=== PATIENT | female | born 1955 | race Caucasian/White ===

== ENCOUNTER 2017-10-11 17:20 | Emergency (ER) | payer OTHER ==
[~2017-10-11] VITALS: Ht 132.1 cm; Wt 113.4 kg
[2017-10-11] MEDS ORDERED: DOXYCYCLINE 10100 MG PO (17:56)
[2017-10-11 18:11] VITALS: BP 163/53
== END 2017-10-11 18:12 | disposition home or self-care (01) ==
LOC: ER 17:20
DX: L03.211 Cellulitis of face (principal); E11.9 Type 2 diabetes mellitus without complications; Z86.73 Personal history of transient ischemic attack (TIA), and cerebral infarction without residual deficits; Z88.1 Allergy status to other antibiotic agents; Z88.5 Allergy status to narcotic agent

== ENCOUNTER 2018-01-03 16:26 | Emergency (ER) | payer OTHER ==
[~2018-01-03] VITALS: Ht 165.1 cm; Wt 111.6 kg
[~2018-01-03 16:26] MED LIST: DOXYCYCLINE 10100 MG PO
[2018-01-03 17:05] LABS: URINE BILIRUBIN NEGATIVE (Negative); URINE BLOOD 1+ (Negative); URINE CLARITY CLEAR; URINE COLOR YELLOW; URINE GLUCOSE-RANDOM* 2+ (Negative); URINE KETONES NEGATIVE (Negative); URINE NITRITE-REFLEX NEGATIVE (Negative); URINE PROTEIN (DIPSTICK) NEGATIVE (Negative); URINE UROBILINOGEN 0.2 E.U./dl (0.2-1.0)
[2018-01-03 17:08] LABS: URINE LEUKOCYTES-REFLEX 1+ (Negative)
[2018-01-03] MEDS ORDERED: METFORMIN HCL500 MG PO (17:11)
[2018-01-03] MEDS ORDERED: SIMVASTATIN40 MG PO (17:11)
[2018-01-03] MEDS ORDERED: ZOLOFT50 MG PO (17:12)
[2018-01-03] MEDS ORDERED: FENOFIBRATE160 MG PO (17:13)
[2018-01-03] MEDS ORDERED: LIORESAL 10 MG10 MG PO (17:14)
[2018-01-03] MEDS ORDERED: FISH OIL 1,001000 M2 PO (17:16)
[2018-01-03 17:21] LABS: BACTERIA-REFLEX >30 Many /HPF (None Seen); CASTS None Seen /LPF (None Seen); SQUAMOUS 4-10 Moderate /LPF (0-3)
[2018-01-03 17:22] LABS: CRYSTALS None Seen /LPF (None Seen); URINE RBC 0-2 Rare /HPF (0-2); WBC CLUMPS Few (None Seen)
[2018-01-03 17:35] LABS: ABSOLUTE NEUTROPHILS 5.2 thou/uL (1.4-8.2); BASOPHILS 0.4 % (0.0-2.0); EOSINOPHILS 0.3 % (0.0-3.0); HEMATOCRIT 38.9 % (37.0-47.0); HEMOGLOBIN 13.3 gm/dL (12.0-15.0); LYMPHOCYTES 16.4 % (24.0-44.0); MCH 30.9 pg (26.0-34.0); MCHC 34.1 g/dL (28.0-37.0); MCV 90.6 fL (80.0-100.0); MONOCYTES 5.3 % (1.0-8.0); PLATELET COUNT 230 thou/uL (150-400); POLYS 77.6 % (36.0-66.0); RDW 13.8 % (10.5-14.5); WBC 6.7 thou/uL (4.0-11.0)
[2018-01-03 17:41] LABS: CALCIUM 9.7 mg/dL (8.5-10.1); POTASSIUM 4.7 mmol/L (3.5-5.1)
[2018-01-03 17:53] LABS: ALBUMIN 3.7 g/dL (3.4-5.0); TOTAL BILIRUBIN 0.5 mg/dL (<0.1-1.0)
[2018-01-03] MEDS ORDERED: BACTRIM DS TAB1 EACH PO (20:06)
[2018-01-03] MEDS ORDERED: HYDROCODONE-AP1 EAC6 PO (20:55)
[2018-01-03 21:04] VITALS: BP 111/47
== END 2018-01-03 21:05 | disposition home or self-care (01) ==
LOC: ER 16:26
PROVIDERS: Physician Assistant
DX: N39.0 Urinary tract infection, site not specified (principal); R51 Headache; E11.9 Type 2 diabetes mellitus without complications; I25.2 Old myocardial infarction; Z95.1 Presence of aortocoronary bypass graft; Z88.1 Allergy status to other antibiotic agents; Z88.5 Allergy status to narcotic agent

== ENCOUNTER 2018-05-15 16:21 | Inpatient (IN) | payer OTHER ==
[~2018-05-15] VITALS: Ht 162.6 cm; Wt 117.9 kg
--- NOTE | ~2018-05-15 | PATH ---
[facility] [address] [place] [address] PATHOLOGY RPT PROCEDURE Name: EMELINA VARGAS Room #: 362-P DIS IN M.R.#: [id number] Admission: 05/15/18 Date of : 55 Discharge: 05/17/18 Report #: [id number] Path Case #: [id number] LCA Accession Number: [id number] . 01 Material submitted: . ANTRUM R/O H. PYLORI . 01 Clinical history: . Pre-OP DX: Abdominal pain Post-OP DX: Gastritis, gastric ulcer, esophagitis, hiatal hernia, duodenitis . 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 - The immunoperoxidase stains for Helicobacter pylori is negative. (SHA:jeff 05/19/2018) QTP/05/19/2018 . 02 Electronically signed: . Ivan Del Cid MD, Pathologist NPI- [id number] . 01 Gross description: . Received in formalin labeled "Emelina Vargas, antrum, rule out H. pylori," are 2 segments of gray soft tissue measuring 0.7 x 0.3 x 0.3 cm in aggregate dimensions and ranging from 0.3 to 0.4 cm in maximum dimension. The specimen is submitted entirely in cassette A1. (TSD; 05/16/2018) TOB/TOB . 02 Pathologist provided ICD-10: K31.9 . 02 CPT . 230444, G18799 Specimen Comment: A courtesy copy of this report has been sent to Specimen Comment: [phone], , . Specimen Comment: Report sent to ,DR VELA / DR YU Specimen Comment: A duplicate report has been generated due to demographic updates. Performed at: [address], [place] [id number] MD Zbigniew Walters MD Phone: [phone] Performed at: [address] [address] PATHOLOGY RPT PROCEDURE Name: EMELINA VARGAS Room #: 362-P DIS IN M.R.#: [id number] Admission: 05/15/18 Date of : 55 Discharge: 05/17/18 Report #: [id number] Path Case #: [id number] [address] [facility], [place], [place] [id number] MD Janae Louis MD Phone: [phone]
--- NOTE | ~2018-05-15 | EKG ---
[address] [place] [address] ELECTROCARDIOGRAM REPORT Name: JAKUB VARGAS Room #: 362-P ADM IN M.R.#: [id number] Admission: 05/15/18 Attend Phys: Juan Daniel Coombs MD Discharge: Date of : 55 Report #: [id number] THIS REPORT FOR: //name// [facility] ED Test Date: 2018-05-15 Test Time: 16:29:04 Pat Name: JAKUB VARGAS Department: Room: 362 Gender: F Stunt Double: GERARDO : 1955 Requested By: Tammy Baires Order Number: [id number] MD: Zack Holt Measurements Intervals [place] Rate: 74 P: 73 RI: 140 QRS: 1 QRSD: 103 T: -27 QT: 430 QTc: 477 Interpretive Statements Sinus rhythm Nonspecific T abnormalities, anterior leads Compared to ECG 03/30/2009 13:14:17 No significant changes Electronically Signed On 05-16-2018 16:55:59 CDT by Zack Holt [email or web address] <ELECTRONICALLY SIGNED> By: Zack Holt MD, [facility] 05/16/18 2265 1629 28 Zack Holt MD, [facility] /EPI
--- NOTE | ~2018-05-15 | 2DMMODE ---
[facility] [address] [place] [address] 2 D/M-MODE ECHOCARDIOGRAM Name: JAKUB VARGAS Room #: 362-P ADM IN M.R.#: [id number] Admission: 05/15/18 Attend Phys: Juan Daniel Coombs MD Discharge: Date of : 55 Date of Service: 05/16/18 1158 Report #: [id number] THIS REPORT FOR: //name// APPROVED REPORT Study performed: 05/16/2018 09:33:36 EXAM: Comprehensive 2D, Doppler, and color-flow Echocardiogram Patient Location: In-Patient Room #: 362 Status: routine BSA: 2.19 HR: 62 bpm BP: 139/71 mmHg Other Information Study Quality: Adequate Technically limited study due to body habitus. Indications Diabetes CAD Chest Pain Hypertension/HDD Hx CVA Echo Enhancing Agent Indication: Endocardial border delineation Agent(s) / Amount(s) Used: Optison 3 cc 2D Dimensions RVDd: 38.32 mm IVSd: 11.54 (7-11mm) LVOT Diam: 22.77 (18-24mm) LVDd: 46.90 mm PWd: 10.95 (7-11mm) Ascending Ao: 33.28 (22-36mm) LVDs: 33.86 (25-40mm) Aortic Root: 30.32 mm IVC: 17.00 mm Volumes Left Atrial Volume (Systole) Single Plane 4CH: 38.31 mL Single Plane 2CH: 43.02 mL LA ESV Index: 20.00 mL/m2 Aortic Valve [facility] [address] [place] [address] 2 D/M-MODE ECHOCARDIOGRAM Name: VARGASJAKUB Room #: 362-P [facility] IN ..#: [id number] Admission: 05/15/18 Attend Phys: Juan Daniel Coombs MD Discharge: Date of : 55 Date of Service: 05/16/18 1158 Report #: [id number] AoV Peak Amos.: 1.15 m/s AO Peak Gr.: 5.30 mmHg LVOT Max P.63 mmHg LVOT Max V: 0.81 m/s KWAKU Vmax: 2.87 cm2 Mitral Valve E/A Ratio: 1.1 MV Decel. Time: 205.45 ms MV E Max Amos.: 0.90 m/s MV A Amos.: 0.83 m/s MV PHT: 59.58 ms IVRT: 114.19 ms Pulmonary Valve PV Peak Amos.: 1.03 m/s PV Peak Gr.: 4.24 mmHg Tricuspid Valve TR Peak Amos.: 2.49 m/s RAP Estimate: 5.00 mmHg TR Peak Gr.: 24.86 mmHg PA Pressure: 30.00 mmHg Left Ventricle The left ventricle is normal size. There is normal LV segmental wall motion. Mild concentric left ventricular hypertrophy. The left ventricular systolic function is normal. The left ventricular ejection fraction is within the normal range. LVEF is 55-60%. The left ventricular diastolic function is normal. Right Ventricle The right ventricle is normal size. The right ventricular systolic function is normal. Atria The left atrium size is normal. The right atrium size is normal. Aortic Valve The aortic valve is normal in structure. No aortic regurgitation is present. There is no aortic valvular stenosis. Mitral Valve The mitral valve is normal in structure. Trace mitral regurgitation. No evidence of mitral valve stenosis. Tricuspid Valve The tricuspid valve is normal in structure. Trace tricuspid [facility] [address] [place] [address] 2 D/M-MODE ECHOCARDIOGRAM Name: JAKUB VARGAS Room #: 362-P ADM IN M.R.#: [id number] Admission: 05/15/18 Attend Phys: Juan Daniel Coombs MD Discharge: Date of : 55 Date of Service: 05/16/18 1158 Report #: [id number] regurgitation. PAP is estimated at 30 mmHg. Pulmonic Valve The pulmonary valve is normal in structure. Mild pulmonic regurgitation. Great Vessels The aortic root is normal in size. IVC is normal in size and collapses >50% with inspiration. Pericardium There is no pericardial effusion. <Conclusion> Technically difficult study The left ventricular systolic function is normal. There is normal LV segmental wall motion. LVEF 55-60%. The aortic valve is normal in structure. No aortic regurgitation or stenosis The mitral valve is normal in structure. Trace mitral regurgitation. Trace tricuspid regurgitation. Pulmonary artery pressure estimated at 30 mmHg. There is no pericardial effusion. <ELECTRONICALLY SIGNED> By: Zack Holt MD, FACC 05/16/18 1158 1158 1158 Zack Holt MD, FACC /INF
--- NOTE | ~2018-05-15 | EKG ---
[address] [place] [address] ELECTROCARDIOGRAM REPORT Name: JAKUB VARGAS Room #: 362-[facility] IN M.R.#: [id number] Admission: 05/15/18 Attend Phys: Juan Daniel Coombs MD Discharge: 05/17/18 Date of : 55 Report #: [id number] THIS REPORT FOR: //name// [facility] Test Date: 2018-05-17 Test Time: 10:54:30 Pat Name: JAKUB VARGAS Department: Room: 362 Gender: F Hand Inspector: JASPAL : 1955 Requested By: Yakov Walsh Order Number: [id number] MD: Zack Holt Measurements Intervals [place] Rate: 59 P: 9 [place]: 138 QRS: -9 QRSD: 107 T: -36 QT: 505 QTc: 501 Interpretive Statements Sinus rhythm Abnormal T, consider ischemia, inferior leads Prolonged QT interval Compared to ECG 05/15/2018 16:29:04 Inferior T wave abnormality is more pronounced Prolonged QT interval now present Electronically Signed On 05-19-2018 8:56:58 CDT by Zack Holt [email or web address] <ELECTRONICALLY SIGNED> By: Zack Holt MD, FAC 05/19/18 0856 1054 1054 Zack Holt MD, [facility] /EPI
[~2018-05-15 16:21] MED LIST changes: +BACTRIM DS TAB1 EACH PO; +FENOFIBRATE160 MG PO; +FISH OIL 1,001000 M2 PO; +HYDROCODONE-AP1 EAC6 PO; +LIORESAL 10 MG10 MG PO; +METFORMIN HCL500 MG PO; +SIMVASTATIN40 MG PO; +ZOLOFT50 MG PO
[2018-05-15 16:22] VITALS: BP 149/73
[2018-05-15 17:00] LABS: ABSOLUTE NEUTROPHILS 3.4 thou/uL (1.4-8.2); BASOPHILS 0.5 % (0.0-2.0); EOSINOPHILS 0.9 % (0.0-3.0); LYMPHOCYTES 34.8 % (24.0-44.0); MCH 30.5 pg (26.0-34.0); MCHC 33.4 g/dL (28.0-37.0); MCV 91.2 fL (80.0-100.0); MONOCYTES 5.8 % (1.0-8.0); PLATELET COUNT 190 thou/uL (150-400); RBC 4.28 mil/uL (4.20-5.00); RDW 13.9 % (10.5-14.5); WBC 5.9 thou/uL (4.0-11.0)
[2018-05-15 17:02] LABS: ANION GAP 12 mmol/L (7-16); BUN 14 mg/dL (7-18); CALCIUM 9.3 mg/dL (8.5-10.1); CHLORIDE 103 mmol/L (98-107); CO2 25 mmol/L (21-32); CREATININE 0.7 mg/dL (0.6-1.0); GLUCOSE 201 mg/dL (74-106); POTASSIUM 4.5 mmol/L (3.5-5.1); SODIUM 140 mmol/L (136-145)
[2018-05-15 17:11] LABS: ALBUMIN 3.7 g/dL (3.4-5.0); LIPASE 239 U/L (73-393); SGOT 21 U/L (15-37); SGPT 18 U/L (30-65); TOTAL BILIRUBIN 0.3 mg/dL (<0.1-1.0); TOTAL PROTEIN 7.1 g/dL (6.4-8.2); TROPONIN-I <0.06 ng/mL (<0.06)
[2018-05-15 17:18] LABS: APTT 27.3 Seconds (24.5-32.8)
[2018-05-15 17:31] LABS: D-DIMER 0.36 ug/mLFEU (0.19-0.50)
[2018-05-15 18:32] VITALS: BP 182/84
[2018-05-15 19:00] VITALS: BP 175/83
[2018-05-15 20:13] VITALS: BP 130/49
[2018-05-16 00:13] VITALS: BP 111/57
[2018-05-16 05:08] LABS: GLYCOHEMOGLOBIN (HGB A1C) 7.9 % (4.8-5.6)
[2018-05-16 07:14] LABS: CHOLESTEROL 168 mg/dL (<200); HDL CHOLESTEROL 27 mg/dL (>40); TC:HDL 6.2 Ratio (Not establshd); TRIGLYCERIDE 516 mg/dL (<150); VLDL 103 mg/dL (<40)
[2018-05-16 07:16] LABS: ALBUMIN 3.6 g/dL (3.4-5.0); CALCIUM 8.8 mg/dL (8.5-10.1); CREATININE 0.7 mg/dL (0.6-1.0); POTASSIUM 3.8 mmol/L (3.5-5.1); TOTAL BILIRUBIN 0.4 mg/dL (<0.1-1.0); TOTAL PROTEIN 6.7 g/dL (6.4-8.2)
[2018-05-16 07:52] VITALS: BP 139/71
[2018-05-16 14:54] VITALS: BP 139/71
[2018-05-16 19:43] VITALS: BP 138/72
[2018-05-17 08:15] VITALS: BP 118/53
[2018-05-17] MEDS ORDERED: COZAAR 25 MG TA25 M1 PO (13:14)
[2018-05-17] MEDS ORDERED: PROTONIX40 M1 PO (13:14)
[2018-05-17] MEDS ORDERED: ASPIR 8181 MG PO (13:14)
[2018-05-17] MEDS ORDERED: CARAFATE 11 GM/10 M1 PO (13:14)
[2018-05-17] MEDS ORDERED: METOPROLOL SUCC25 M1 PO (13:14)
[2018-05-17 13:22] VITALS: BP 118/53
[2018-05-17 13:32] VITALS: BP 118/53
== END 2018-05-17 17:53 | disposition home or self-care (01) | DRG 381 ==
LOC: ER 16:21 → 3W 18:03 → EROBS 18:03 → 3W 19:07
PROVIDERS: Family Medicine; Nurse Practitioner; Physician Assistant
PROC: 0DJ08ZZ Inspection of Upper Intestinal Tract, Via Natural or Artificial Opening Endoscopic (ICD-10-PCS; principal; 2018-05-16)
DX: K22.10 Ulcer of esophagus without bleeding (principal); I25.110 Atherosclerotic heart disease of native coronary artery with unstable angina pectoris; I69.351 Hemiplegia and hemiparesis following cerebral infarction affecting right dominant side; K29.81 Duodenitis with bleeding; K25.9 Gastric ulcer, unspecified as acute or chronic, without hemorrhage or perforation; E11.9 Type 2 diabetes mellitus without complications; F41.9 Anxiety disorder, unspecified; I10 Essential (primary) hypertension; E78.5 Hyperlipidemia, unspecified; E78.1 Pure hyperglyceridemia; M34.9 Systemic sclerosis, unspecified; K44.9 Diaphragmatic hernia without obstruction or gangrene; Z95.1 Presence of aortocoronary bypass graft; I25.2 Old myocardial infarction; Z88.6 Allergy status to analgesic agent; Z88.1 Allergy status to other antibiotic agents; I69.320 Aphasia following cerebral infarction; Z87.891 Personal history of nicotine dependence; Z90.49 Acquired absence of other specified parts of digestive tract; Z86.010 Personal history of colon polyps; Z23 Encounter for immunization; Z79.899 Other long term (current) drug therapy
CPT/HCPCS: 10879; 62110; 62900; 70005

== ENCOUNTER 2018-08-06 00:10 | Inpatient (IN) | payer OTHER ==
[~2018-08-06] VITALS: Ht 162.6 cm; Wt 108.6 kg
[~2018-08-06 00:10] MED LIST changes: +ASPIR 8181 MG PO; +CARAFATE 11 GM/10 M1 PO; +COZAAR 25 MG TA25 M1 PO; +METOPROLOL SUCC25 M1 PO; +PROTONIX40 M1 PO
[2018-08-06 00:14] VITALS: BP 125/53
[2018-08-06 01:08] LABS: BE(vivo) -2.1 mmol/L (-2 to +3); HCO3 22.9 mmol/L (22.0-26.0); PCO2 VENOUS 40.2 mmHg (41.0-51.0); PO2 VENOUS 201.5 mmHg (35.0-45.0)
[2018-08-06 01:25] LABS: HEMATOCRIT 35.1 % (37.0-47.0); HEMOGLOBIN 11.9 gm/dL (12.0-15.0); MCH 31.6 pg (26.0-34.0); MCV 93.1 fL (80.0-100.0); RBC 3.77 mil/uL (4.20-5.00); WBC 5.6 thou/uL (4.0-11.0)
[2018-08-06 01:32] LABS: ANION GAP 9 mmol/L (7-16); BUN 21 mg/dL (7-18); CHLORIDE 106 mmol/L (98-107); CO2 27 mmol/L (21-32); CREATININE 1.1 mg/dL (0.6-1.0); GLUCOSE 204 mg/dL (74-106); POTASSIUM 4.8 mmol/L (3.5-5.1); SODIUM 142 mmol/L (136-145)
[2018-08-06 01:41] LABS: TROPONIN-I <0.06 ng/mL (<0.06)
[2018-08-06 02:55] VITALS: BP 125/53
[2018-08-06 04:03] VITALS: BP 133/58
--- NOTE | 2018-08-06 06:30 | NUR ---
ADMIT FROM ER. PT ON 15L ON HIGH FLOW. OTHER FAMILY MEMBERS ARE ON 4W WITH CO2 EXPOSURE. OVERLY ROUNDING.
[2018-08-06 07:25] LABS: BE(vivo) -0.9 mmol/L (-2 to +3); HCO3 24.8 mmol/L (22.0-26.0); PCO2 VENOUS 45.5 mmHg (41.0-51.0); PO2 VENOUS 245.5 mmHg (35.0-45.0)
[2018-08-06 08:09] VITALS: BP 109/55
--- NOTE | 2018-08-06 08:29 | EKG ---
[place] [address] [facility] [place] [address] ELECTROCARDIOGRAM REPORT Name: JAKUB VARGAS Room #: 357-P ADM IN M.R.#: [id number] Admission: 08/06/18 Attend Phys: Serge Wakefield MD Discharge: Date of : 55 Report #: [id number] THIS REPORT FOR: //name// [facility] ED Test Date: 2018-08-06 Test Time: 01:29:52 Pat Name: JAKUB VARGAS Department: Room: 357 Gender: F Child Caregiver: radha garcia rn : 1955 Requested By: Josh Cool Order Number: [id number] MD: Benson Shaw Measurements Intervals [place] Rate: 62 P: 48 [place]: 157 QRS: -15 QRSD: 102 T: QT: 639 QTc: 649 Interpretive Statements Sinus rhythm Borderline left axis deviation Excessive motion artifact. Compared to ECG 05/17/2018 10:54:30 Electronically Signed On 08-06-2018 8:29:38 [employer] PURCHASE TRUCK DRIVER by Benson Shaw [email or web address] <ELECTRONICALLY SIGNED> By: Benson Shaw MD 08/06/18 0829 0129 0129 Benson Shaw MD /LIZANDRO
[2018-08-06 15:22] VITALS: BP 100/56
--- NOTE | 2018-08-06 15:57 | NUR ---
assumed care of pt at 0700. pt aphasic. in no acute distress. AOx2-3. weaned off oxygen. now on room air. complaining of headache - Toradol ordered by physician. now sleeping. good appetite. sugars elevated - treated per protocol. will cont to monitor. good progress toward poc goals.
--- NOTE | 2018-08-06 16:08 | NUR ---
ASSESSMENT: CM REVIEWED CHART AND MET WITH PATIENT AT THE BEDSIDE. PT WAS ADMITTED WITH CARBON MONOXIDE EXPOSURE AFTER POWER OUTTAGE AND USING A GENERATOR. PT HAS HX OF CVA AND RIGHT SIDED WEAKNESS. PT IS ABLE TO STATE SOME INFORMATION AND REPORTS SHE LIVES AT HOME WITH HER NIECE AMELIE PT REPORTS NO STEPS AT THE HOME AND HAS A RAMP TO ENTER. PT HAS AN ELECTRIC WHEELCHAIR AT HOME. PT HAS GRAB BARS AND A SHOWER BENCH. PTS NIECE AMELIE LIVES WITH HER AND WORKS THROUGH [employer] AND GETS PAID TO HELP TAKE CARE OF PATIENT IN THE HOME (THROUGH HER MEDICAID BENEFIT). CM ATTEMPTED TO REACH AMELIE BUT UNABLE TO AT THIS TIME. PT REPORTS SHE HEARD HER POWER IS STILL OUT. CM ALSO CONTACTED [facility] [phone] TO CHECK ON CARBON MONOXIDE AND MUSIC STORE MANAGER STATED SHE ONLY HAS INFORMATION THAT THEY PICKED UP PATIENT AND THE [facility] WAS CALLED THERE BUT SHE DOES NOT HAVE A DOCUMENT CARBON MONOXIDE READING. CM WILL CONTINUE TO FOLLOW.
[2018-08-06 20:21] VITALS: BP 120/96
[2018-08-07 00:24] VITALS: BP 116/59
--- NOTE | 2018-08-07 04:19 | NUR ---
MAINTAINS OXYGENATION ON ROOM AIR. COMPLAINS OF HEADACHE TONIGHT. SHE NEEDED FENTANYL FOR PAIN RELIEF, TORADOL AND HYDROCODONE WERE NOT RELIEVING HER DISCOMFORT. ENCOURAGED TURNS SIDE TO SIDE. SHE IS CURRENTLY RESTING QUIETLY AT THIS TIME. PROGRESSING TOWARD DISCHARGE GOALS.
[2018-08-07 04:56] VITALS: BP 130/65
[2018-08-07 06:13] LABS: CALCIUM 8.8 mg/dL (8.5-10.1); CREATININE 0.8 mg/dL (0.6-1.0); POTASSIUM 4.7 mmol/L (3.5-5.1)
[2018-08-07 07:31] VITALS: BP 119/66
[2018-08-07 14:26] VITALS: BP 129/71
--- NOTE | 2018-08-07 15:24 | NUR ---
ON-GOING ASSESSMENT: PT WAS GOING TO DISCHARGE TODAY IF SHE HAD A SAFE PLAN. HOWEVER PATIENTS NIECE WHO SHE LIVES WITH AMELIE IS ST[facility] AT [facility] BEDSIDE RN REPORTS HE SPOKE WITH HER AND SHE STATES THEIR POWER IS STILL OUT AT THEIR HOME. CM MET WITH PATIENT AT THE BEDSIDE. PT HAS HX CVA AND S/P HEMIPARESIS AND HAS EXPRESSIVE APHASIA. PT REPORTS SHE HAD SPOKE WITH AMELIE AND THE POWER IS STILL OUT AT THE HOME. CM HAD ATTEMPTED TO CONTACT PATIENTS DAUGHTER BUT SHE STATES SHE DOES NOT SPEAK TO PATIENT AND HAS NOT SPOKEN TO HER IN A LONG TIME. BEDSIDE RN REPORTED HE SPOKE WITH ATTENDING ABOUT PATIENT STILL NOT HAVING POWER.
--- NOTE | 2018-08-07 15:48 | NUR ---
ASsumed care of Pt at 0700. pt aphasic. baseline mentation. breathing comfortably on room air. complains only of headache - finding relief with current med regimen. medically stable for discharge, however family members reports home is still without power and are still working on setting up CO2 monitors. physician notified - patient to stay overnight - will cont to monitor. pt progressed toward poc goals.
[2018-08-07 19:38] VITALS: BP 147/68
[2018-08-08 03:28] VITALS: BP 153/77
--- NOTE | 2018-08-08 04:39 | NUR ---
PATIENT IS ALERT TO SELF AND SITUATION. PATINET IS Q2TURN. JOHNT HAS WEAKNESS TO RT SIDE FROM OLD CVA. PATIENT HAS A BRACE ON THAT SIDE. PATIENT LBM WAS THE 17TH. PATIENT HAS INTERMIENTENT HEADACHES. PATIENTS IV DC'ED AND PATIENT HAS A ORDER TO KEEP IV OUT. PATIENT IS ON ROOMAIR. PATIENT HAS A FEMALE EXTERNAL CATH. PATIENT HAS SOME EXPRESSIVE APHESIA. PATIENT HAD SOME NAUSEA THIS SHIFT. PATIENT IS RESTING COMFORTABLEY IN BED. WCM. PATIENT IS PROGRESSING TO GOALS. PENDING DC TODAY.
[2018-08-08 07:12] VITALS: BP 124/59
--- NOTE | 2018-08-08 10:32 | NUR ---
ON-GOING ASSESSMENT: CM REVIEWED CHART AND SPOKE WITH PATIENT AT THE BEDSIDE. CM ALSO SPOKE WITH PATIENTS NIECE AMELIE [phone] WHO SHE LIVES WITH AND SHE REPORTS THE POWER IS BACK ON AT THEIR HOME. CM DISCUSSED THAT PATIENT IS DISCHARGING TODAY. CM MET WITH PATIENT AT THE BEDSIDE AND DISCUSSED. PATIENTS STATES HER FAMILY MEMBER EMELY IS COMING AT 1400 TO PICK HER UP FROM THE HOSPITAL. CM NOTIFIED BEDSIDE RN.
--- NOTE | 2018-08-08 12:26 | NUR ---
ON-GOING ASSESSMENT: DEMETRI SPOKE WITH EMELY PATIENTS FAMILY MEMBER WHO CONFIRMS SHE GETS OFF AT ONE AND THEN WILL COME CRIMPER OPERATOR PATIENT TO TAKE HER HOME.
[2018-08-08 14:27] VITALS: BP 124/59
[2018-08-08 14:31] VITALS: BP 124/59
--- NOTE | 2018-08-08 15:45 | NUR ---
VSS-AFEBRILE. LUNGS CLEAR-ROOM AIR. PAIN WELL CONTROLLED WITH ORAL PAIN MEDICATIONS. DAUGHTER AT BEDISDE. DISCUSSED DC INSTRUCTIONS WELL S/S OF CARBON MONOXIDE POISONING, PATIENT AN DAUGHTER VERBALIZED UNDERSTANDING. DAUGHTER TO STOP BY PHARMACY TO ENTRY LEVEL SALES CONSULTANT HOME MEDICATIONS. LEFT UNIT WITH TRANSPORTER AND ALL PERSONAL BELONGINGS.
== END 2018-08-08 15:17 | disposition home or self-care (01) | DRG 917 ==
LOC: ER 00:10 → 3W 01:30 → EROBS 01:30 → 3W 03:34 → ENTRNSPT 08-08 14:47 → EDTRNSPTSTS 08-08 14:50 → 3W 08-08 15:17
PROVIDERS: Emergency Medicine; Nurse Practitioner Family; ADMIT Hospitalist
DX: T58.8X1A Toxic effect of carbon monoxide from other source, accidental (unintentional), initial encounter (principal); J96.00 Acute respiratory failure, unspecified whether with hypoxia or hypercapnia; I69.351 Hemiplegia and hemiparesis following cerebral infarction affecting right dominant side; E11.9 Type 2 diabetes mellitus without complications; I25.10 Atherosclerotic heart disease of native coronary artery without angina pectoris; E78.5 Hyperlipidemia, unspecified; I25.2 Old myocardial infarction; Z95.1 Presence of aortocoronary bypass graft; Z88.6 Allergy status to analgesic agent; Z88.1 Allergy status to other antibiotic agents; Z87.891 Personal history of nicotine dependence; I69.320 Aphasia following cerebral infarction; Y92.59 Other trade areas as the place of occurrence of the external cause
CPT/HCPCS: 10879

== ENCOUNTER 2021-03-27 21:36 | Inpatient (IN) | payer OTHER ==
[~2021-03-27] VITALS: Ht 160 cm; Wt 111.1 kg
[2021-03-27 21:38] VITALS: BP 154/75
[2021-03-27] MEDS ORDERED: LISINOPRIL10 MG PO (21:43)
[2021-03-27] MEDS ORDERED: NORVASC 2.5 MG2.5 M1 PO (21:44)
[2021-03-27 22:21] LABS: ABSOLUTE NEUTROPHILS 4.7 thou/uL (1.4-8.2); BASOPHILS 1.2 % (0.0-2.0); EOSINOPHILS 0.9 % (0.0-3.0); HEMATOCRIT 41.6 % (37.0-47.0); HEMOGLOBIN 14.1 gm/dL (12.0-15.0); LYMPHOCYTES 28.1 % (24.0-44.0); MCH 32.9 pg (26.0-34.0); MCHC 33.8 g/dL (28.0-37.0); MCV 97.4 fL (80.0-100.0); MONOCYTES 5.5 % (1.0-8.0); PLATELET COUNT 243 thou/uL (150-400); POLYS 64.3 % (36.0-66.0); RBC 4.27 mil/uL (4.20-5.00); RDW 14.1 % (10.5-14.5); WBC 7.3 thou/uL (4.0-11.0)
[2021-03-27 22:22] LABS: URINE BILIRUBIN NEGATIVE (Negative); URINE BLOOD NEGATIVE (Negative); URINE CLARITY CLOUDY; URINE COLOR YELLOW; URINE GLUCOSE-RANDOM* 2+ (Negative); URINE KETONES NEGATIVE (Negative); URINE LEUKOCYTES-REFLEX NEGATIVE (Negative); URINE PROTEIN (DIPSTICK) TRACE (Negative); URINE SPECIFIC GRAVITY >= 1.030 (1.005-1.035); URINE UROBILINOGEN 0.2 E.U./dl (0.2-1.0)
[2021-03-27 22:26] LABS: URINE NITRITE-REFLEX POSITIVE (Negative)
[2021-03-27 22:37] LABS: ANION GAP 10 mmol/L (7-16); BUN 18 mg/dL (7-18); CALCIUM 8.6 mg/dL (8.5-10.1); CHLORIDE 101 mmol/L (98-107); CO2 23 mmol/L (21-32); CREATININE 0.9 mg/dL (0.6-1.0); GLUCOSE 259 mg/dL (74-106); POTASSIUM 4.5 mmol/L (3.5-5.1); SODIUM 134 mmol/L (136-145)
[2021-03-27 22:41] LABS: ALBUMIN 3.5 g/dL (3.4-5.0); DIRECT BILIRUBIN < 0.1 mg/dL (<0.1-0.2); LIPASE 230 U/L (73-393); TOTAL BILIRUBIN 0.4 mg/dL (0.2-1.0); TOTAL PROTEIN 7.2 g/dL (6.4-8.2)
[2021-03-27 22:43] LABS: SGOT 15 U/L (15-37); SGPT 21 U/L (14-59)
[2021-03-27 23:30] LABS: BACTERIA-REFLEX >30 Many /HPF (None Seen); CASTS None Seen /LPF (None Seen); MUCUS 0-3 Light strn/LPF (None Seen); SQUAMOUS 4-10 Moderate /LPF (0-3); URINE RBC 3-10 Few /HPF (NONE SEEN); URINE WBC-REFLEX 0-5 Rare /HPF (0-5)
[2021-03-27 23:31] LABS: CRYSTALS None Seen /LPF (None Seen)
[2021-03-28 03:08] LABS: HEMATOCRIT 38.8 % (37.0-47.0); HEMOGLOBIN 12.9 gm/dL (12.0-15.0); MCH 32.3 pg (26.0-34.0); MCHC 33.4 g/dL (28.0-37.0); MCV 96.7 fL (80.0-100.0); RBC 4.01 mil/uL (4.20-5.00); WBC 6.8 thou/uL (4.0-11.0)
[2021-03-28 03:22] LABS: PROTIME 10.9 Seconds (10.5-12.1)
[2021-03-28 03:28] LABS: CALCIUM 8.7 mg/dL (8.5-10.1); CREATININE 0.8 mg/dL (0.6-1.0); POTASSIUM 4.7 mmol/L (3.5-5.1)
[2021-03-28 03:37] LABS: CHOLESTEROL 166 mg/dL (<200); HDL CHOLESTEROL 26 mg/dL (>40); TC:HDL 6.4 Ratio (Not establshd); TRIGLYCERIDE 443 mg/dL (<150); VLDL 89 mg/dL (<40)
[2021-03-28 04:27] LABS: SERUM ASSESSMENT Clear
--- NOTE | 2021-03-28 09:31 | 2DMMODE ---
[facility] [address] [place] [address] 2 D/M-MODE ECHOCARDIOGRAM Name: JAKUB VARGAS Room #: 170-1 ADM IN M.R.#: [id number] Admission: 03/28/21 Attend Phys: Pushpa Garza Discharge: Date of : 55 Report #: [id number] THIS REPORT FOR: cc: FAM - No family physician/PCP FAM - No family physician/PCP Diogenes Mustafa MD ~ APPROVED REPORT Study performed: 03/28/2021 08:33:27 EXAM: Comprehensive 2D, Doppler, and color-flow Echocardiogram Patient Location: ER Status: routine BSA: 2.11 HR: 67 bpm BP: 132/45 mmHg Rhythm: NSR Other Information Study Quality: Good Indications Diabetes Dyspnea CAD Chest Pain 2D Dimensions RVDd: 40.17 mm IVSd: 9.66 (7-11mm) LVOT Diam: 22.27 (18-24mm) LVDd: 54.84 mm PWd: 9.44 (7-11mm) Ascending Ao: 32.73 (22-36mm) LVDs: 37.92 (25-40mm) Left Atrium: 43.72 (27-40mm) Aortic Root: 28.44 mm IVC: 15.00 mm Volumes Left Atrial Volume (Systole) Single Plane 4CH: 40.65 mL Single Plane 2CH: 35.70 mL LA ESV Index: 20.00 mL/m2 Aortic Valve AoV Peak Amos.: 1.34 m/s [facility] [address] [place] [address] 2 D/M-MODE ECHOCARDIOGRAM Name: JAKUB VARGAS Room #: 170-1 ADM IN M.R.#: [id number] Admission: 03/28/21 Attend Phys: Pushpa Gutiérrez Discharge: Date of : 55 Report #: [id number] AO Peak Gr.: 7.19 mmHg LVOT Max P.28 mmHg LVOT Max V: 0.91 m/s KWAKU Vmax: 2.63 cm2 Mitral Valve E/A Ratio: 1.3 MV Decel. Time: 231.69 ms MV E Max Amos.: 1.33 m/s MV A Amos.: 1.04 m/s MV PHT: 67.19 ms IVRT: 69.20 ms Pulmonary Valve PV Peak Amos.: 0.92 m/s PV Peak Gr.: 3.40 mmHg Pulmonary Vein P Vein S: 0.70 m/s P Vein A: 0.22 m/s P Vein D: 0.96 m/s P Vein A Dur.: 96.9 msec P Vein S/D Ratio: 0.73 Tricuspid Valve TR Peak Amos.: 2.86 m/s TR Peak Gr.: 32.66 mmHg PA Pressure: 38.00 mmHg Left Ventricle The left ventricle is normal size. There is normal LV segmental wall motion. There is normal left ventricular wall thickness. The left ventricular systolic function is normal. The left ventricular ejection fraction is within the normal range. LVEF is 55-60%. Grade II - pseudonormal filling dynamics. Right Ventricle The right ventricle is normal size. The right ventricular systolic function is normal. Atria The left atrium size is normal. The right atrium size is normal. Aortic Valve The aortic valve is normal in structure. No aortic regurgitation is present. There is no aortic valvular stenosis. Mitral Valve The mitral valve is normal in structure. Mild mitral regurgitation. [facility] [place] [address] 2 D/M-MODE ECHOCARDIOGRAM Name: JAKUB VARGAS Room #: 170-1 ADM IN M.R.#: [id number] Admission: 03/28/21 Attend Phys: Pushpa Gutiérrez Discharge: Date of : 55 Report #: [id number] No evidence of mitral valve stenosis. Tricuspid Valve The tricuspid valve is normal in structure. There is trace tricuspid regurgitation. Estimated PAP 36 mmHg. There is mild pulmonary hypertension. Pulmonic Valve The pulmonary valve is normal in structure. Trace pulmonic regurgitation. Great Vessels The aortic root is normal in size. IVC is normal in size and collapses >50% with inspiration. Pericardium There is no pericardial effusion. <Conclusion> The left ventricle is normal size. There is normal left ventricular wall thickness. The left ventricular systolic function is normal. Grade II - pseudonormal filling dynamics. The right ventricle is normal size. The left atrium size is normal. The aortic valve is normal in structure. Mild mitral regurgitation. There is trace tricuspid regurgitation. Estimated PAP 36 mmHg. <ELECTRONICALLY SIGNED> By: Diogenes Mustafa MD 03/28/21930 0 0 Diogenes Mustafa MD /INF
--- NOTE | 2021-03-28 17:18 | NUR ---
PT ASSISTED ON THE BEDPAN WITHOUT ISSUE OR DIFFICULTY. REPORT GIVEN TO ALVIN SANTANA ON CCU. WILL ADMIT PT TO ROOM 204.
[2021-03-28 17:40] VITALS: BP 134/54
--- NOTE | 2021-03-28 17:59 | CATHLAB ---
[facility] [place] [address] [place] [address] INVASIVE PROCEDURE REPORT Name: JAKUB VARGAS Room #: 204-P ADM IN M.R.#: [id number] Admission: 03/28/21 Attend Phys: Pushpa Steve Greg Discharge: Date of : 55 Report #: [id number] THIS REPORT FOR: cc: FAM - No family physician/PCP FAM - No family physician/PCP Yakov Walsh MD [facility] ~ APPROVED REPORT Study performed: 03/28/2021 13:00:56 Patient Details Patient Status: Out-Patient Room #: The patient is a 66 year-old female Event Personnel Yakov Walsh Printed Circuit Photographer, Bre Reynaga RTR, TY Scrub, Jaida Jean-Baptiste RTR Scrub, Shreya Carl Monitor, Yvonne Ashley RN research neuropsychologist Performed Art Access - R femoral artery* Left Heart Cath w/or w/o Coronaries [id number] [facility] Hemostasis w/ Mynx 19336 Initial Mod Sed Same Phys/QHP Gr5y 496901 56107 Mod Sed Same Phys/QHP Ea 585504 Indication Chest pain Procedure Narrative The Right Groin^ was infiltrated with 1% Lidocaine subcutaneous anesthesia. A PINNACLE 6FR Sheath #[id number] sheath was inserted into the RFA^. Coronary angiography was performed using coronary diagnostic catheters. The right coronary system was accessed and visualized with a JR4 catheter. The left coronary system was accessed and visualized with a JL4 catheter. The left ventricle was accessed and visualized with a STR PIG catheter. There was no hematoma. Intraoperative Conscious Sedation Sedation start time: 1423 Case end Time: 1510 Fentanyl 50 mcg Versed 1 mg Fluoro Time: 4.20 minutes Dose: DAP 9301.60 cGycm2 1322 mGy [facility] [address] [place] [address] INVASIVE PROCEDURE REPORT Name: JAKUB VARGAS Room #: 204-P [facility] IN ..#: [id number] Admission: 03/28/21 Attend Phys: Pushpa Gutiérrez Discharge: Date of : 55 Report #: [id number] Contrast Type and Amount: Omnipaque 155 ml Hemodynamics The aortic pressure is 161/68 mmHg with a mean of 105 mmHg. The left ventricular pressure is 179/15 mmHg with a mean of mmHg. The left ventricular end diastolic pressure is 30 mmHg. Conclusion #1 Normal left ventricular size and systolic function EF 60%. #2 abdominal aortogram normal caliber mild aortic ectasia no aneurysm. #3 left main is mildly diseased distal segment narrowing of 30% giving rise to LAD and circumflex. #4 LAD some competitive filling of a diagonal the LAD is occluded proximally after the septal branch. #5 a OREILLY sequential to a diagonal LAD is widely patent and briskly filling the LAD system and the septal system which collaterally fills the PDA briskly. The diagonal branch competitively filled via this graft [place] diagonal is still patent. #6 the circumflex OM is moderately diseased the first OM is patent with a 50% lesion and calcification. Diffuse distal disease in a smaller nondominant system. #7 SVG to OM is occluded #8 the [place] right coronary artery is occluded #9 SVG to the PDA is occluded there appears to be possible distal clot but the PDA fills briskly via the left system. Recommendations and plan: There is evidence of slight troponin elevation. However ejection fraction is preserved. Not clear as the culprit possibly this SVG to the PDA but this is occluded proximally and little chance of successful reopening. Also concerned about distal clot showering of what appears to be a briskly filled PDA. She is pain-free without EKG changes. We will treat aggressively medically with medical management. Best not to attempt intervention into [place] right or SVG to PDA. LV function is preserved and PDA is briskly collaterally filled via the left system. <ELECTRONICALLY SIGNED> By: Yakov Walsh MD, [facility] 03/28/211758 58 58 Yakov Walsh MD, FACC /INF
[2021-03-28 19:32] VITALS: BP 140/60
--- NOTE | 2021-03-28 20:29 | NUR ---
End shift note: Pt remained safe and comfortable during the last hours of the shift, pain conntrolled, groin site w/o complications, VSS, gluc covered, one BM.
[2021-03-28 23:39] VITALS: BP 154/68
[2021-03-29 04:44] VITALS: BP 131/49
[2021-03-29 07:38] VITALS: BP 134/59
[2021-03-29] MEDS ORDERED: LIPITOR40 MG PO (07:55)
[2021-03-29] MEDS ORDERED: CLOPIDOGREL75 MG PO (07:55)
[2021-03-29] MEDS ORDERED: IMDUR 30 MG TAB30 M1 PO (07:55)
[2021-03-29 08:12] LABS: CALCIUM 9.2 mg/dL (8.5-10.1); CREATININE 0.9 mg/dL (0.6-1.0); POTASSIUM 4.4 mmol/L (3.5-5.1)
--- NOTE | 2021-03-29 08:16 | EKG ---
[address] [place] [place] [address] ELECTROCARDIOGRAM REPORT Name: JAKUB VARGAS Room #: 204-P ADM IN M.R.#: [id number] Admission: 03/28/21 Attend Phys: Duke Gleason MD Discharge: Date of : 55 Report #: [id number] [facility] ED Test Date: 2021-03-27 Test Time: 21:42:49 Pat Name: JAKUB VARGAS Department: Room: 204 Gender: F Dental Professional: IRMA : 1955 Requested By: Andrea Gutierrez Order Number: [id number] MD: Zack Holt Measurements Intervals [place] Rate: 73 P: 42 TN: 155 QRS: 36 QRSD: 100 T: 56 QT: 459 QTc: 506 Interpretive Statements Sinus rhythm Nonspecific T abnormalities, anterior leads Prolonged QT interval Compared to ECG 08/06/2018 01:29:52 No significant change was found Electronically Signed On 03-29-2021 8:16:21 CDT by Zack Holt [email or web address] <ELECTRONICALLY SIGNED> By: Zack Holt MD, [facility] 03/29/21 0816 41 41 Zack Holt MD, [facility] /EPI
--- NOTE | 2021-03-29 08:17 | EKG ---
[address] [place] [place] [address] ELECTROCARDIOGRAM REPORT Name: JAKUB VARGAS Room #: 204- ADM IN M.R.#: [id number] Admission: 03/28/21 Attend Phys: Duke Gleason MD Discharge: Date of : 55 Report #: [id number] [facility] ED Test Date: 2021-03-28 Test Time: 01:47:54 Pat Name: JAKUB VARGAS Department: Room: 204 Gender: F Slumber Room Attendant: DANA : 1955 Requested By: Andrea Gutierrez Order Number: [id number] MD: Zack Holt Measurements Intervals [place] Rate: 72 P: 29 [place]: 157 QRS: 11 QRSD: 97 T: 27 QT: 460 QTc: 504 Interpretive Statements Sinus rhythm nonspecific ST segment abnormality prolonged QT interval Baseline wander in lead(s) I,II,aVR,aVL,V1 Compared to ECG 03/27/2021 21:42:49 No significant changes Electronically Signed On 03-29-2021 8:17:04 CDT by Zack Holt [email or web address] <ELECTRONICALLY SIGNED> By: Zack Holt MD, [facility] 03/29/21 0817 6 Zack Holt MD, [facility] /EPI
--- NOTE | 2021-03-29 08:17 | EKG ---
[address] [place] [address] ELECTROCARDIOGRAM REPORT Name: JAKUB VARGAS Room #: 204-P ADM IN M.R.#: [id number] Admission: 03/28/21 Attend Phys: Duke Gleason MD Discharge: Date of : 55 Report #: [id number] [facility] ED Test Date: 2021-03-28 Test Time: 01:49:07 Pat Name: JAKUB VARGAS Department: Room: 204 Gender: F [employer]: DANA : 1955 Requested By: Andrea Gutierrez Order Number: [id number] MD: Zack Holt Measurements Intervals [place] Rate: 70 P: 12 MA: 159 QRS: 11 QRSD: 97 T: 21 QT: 449 QTc: 485 Interpretive Statements Sinus rhythm Nonspecific T abnormalities, anterior leads Compared to ECG 03/27/2021 21:42:49 Prolonged QT interval no longer present T-wave abnormality still present Electronically Signed On 03-29-2021 8:17:17 CDT by Zack Holt [email or web address] <ELECTRONICALLY SIGNED> By: Zack Holt MD, [facility] 03/29/21 0817 [id number] Zack Holt MD, [facility] /EPI
[2021-03-29 16:34] VITALS: BP 122/59
--- NOTE | 2021-03-29 17:31 | NUR ---
ASSESSMENT CHARTED - MEDS PER SHALINI - MELISSA DIET AND FLUIDS -NO CO'S OF NAUSEA. PT WITH CO'S OF HEADACHE THIS AFTERNOON GIVEN HYDRCODONE WITH MINIMAL EFFECT - PT UP TO THE CHAIR FOR MOST OF THE DAY. ACCUCHECKS CHARTED - COVERED PER SSI PRN. NO CO'S AT THE PRESENT TIME.
[2021-03-29 20:10] VITALS: BP 123/57
--- NOTE | 2021-03-30 04:58 | NUR ---
RECEIVED PATIENT ALERT AND ORIENTED.ON ROOM AIR BREATHING SPONTANEOUSLY.NOT IN PAIN OR DISTRESS.NOT IN PAIN OR DISTRESS.WITH EXPRESSIVE APHASIA AND RIGHT SIDED WEAKNESS.ALL NEEDS ATTENDED.FOR CONTINOUS MONITORING
[2021-03-30 05:10] LABS: HEMATOCRIT 37.4 % (37.0-47.0); HEMOGLOBIN 12.8 gm/dL (12.0-15.0); MCHC 34.3 g/dL (28.0-37.0); MCV 96.2 fL (80.0-100.0); RBC 3.88 mil/uL (4.20-5.00); RDW 13.5 % (10.5-14.5); WBC 4.9 thou/uL (4.0-11.0)
[2021-03-30 05:20] VITALS: BP 129/69
[2021-03-30 05:54] LABS: CREATININE 0.8 mg/dL (0.6-1.0); POTASSIUM 3.8 mmol/L (3.5-5.1)
[2021-03-30 07:17] VITALS: BP 137/55
[2021-03-30 11:30] VITALS: BP 129/53
[2021-03-30] MEDS ORDERED: CEPHALEXIN500 MG PO (11:37)
[2021-03-30 14:06] VITALS: BP 129/53
--- NOTE | 2021-03-30 15:17 | NUR ---
PT RESTING COMFORTABLY IN CHAIR. PT AFEBRILE, ADEQUATE UOP, NO BM, APPROPRIATE APPETITE, GROIN SITE C/D/I, PT WITH EXPRESSIVE APHASIA. PT TO BE DC HOME WITH FAMILY AT 1420. PT PROGRESSED TOWARDS POC. PT UPDATED AND EDUCATED ON PT CONDITION, POC, AND DC INSTRUCTIONS.
== END 2021-03-30 15:09 | disposition home or self-care (01) | DRG 281 ==
LOC: ER 21:36 → 2N 03-28 02:36 → EROBS 03-28 02:36 → 2N 03-28 17:41
PROVIDERS: Hospitalist; Nurse Practitioner Adult Health; Nurse Practitioner Family; Student in an Organized Health Care Education/Training Program; ADMIT Internal Medicine; ATTEND Internal Medicine
PROC: B2151ZZ Fluoroscopy of Left Heart using Low Osmolar Contrast (ICD-10-PCS; principal; 2021-03-28)
PROC: 4A023N7 Measurement of Cardiac Sampling and Pressure, Left Heart, Percutaneous Approach (ICD-10-PCS; principal; 2021-03-28)
PROC: B2111ZZ Fluoroscopy of Multiple Coronary Arteries using Low Osmolar Contrast (ICD-10-PCS; principal; 2021-03-28)
PROC: B4101ZZ Fluoroscopy of Abdominal Aorta using Low Osmolar Contrast (ICD-10-PCS; principal; 2021-03-28)
DX: I21.4 Non-ST elevation (NSTEMI) myocardial infarction (principal); N39.0 Urinary tract infection, site not specified; I69.351 Hemiplegia and hemiparesis following cerebral infarction affecting right dominant side; Z20.822 Contact with and (suspected) exposure to COVID-19; I10 Essential (primary) hypertension; E78.5 Hyperlipidemia, unspecified; E11.9 Type 2 diabetes mellitus without complications; I25.10 Atherosclerotic heart disease of native coronary artery without angina pectoris; E78.1 Pure hyperglyceridemia; F17.210 Nicotine dependence, cigarettes, uncomplicated; E78.00 Pure hypercholesterolemia, unspecified; Z79.82 Long term (current) use of aspirin; Z95.1 Presence of aortocoronary bypass graft; I25.2 Old myocardial infarction; Z88.6 Allergy status to analgesic agent; Z88.1 Allergy status to other antibiotic agents; Z79.899 Other long term (current) drug therapy
CPT/HCPCS: 10081

== ENCOUNTER → 2021-04-12 | Outpatient (CLI) | payer OTHER ==
[~2021-04-12] MED LIST changes: +CEPHALEXIN500 MG PO; +CLOPIDOGREL75 MG PO; +IMDUR 30 MG TAB30 M1 PO; +LIPITOR40 MG PO; +LISINOPRIL10 MG PO; +NORVASC 2.5 MG2.5 M1 PO
== END ==
LOC: SJCVC 14:24
PROVIDERS: ATTEND Nurse Practitioner
DX: I25.10 Atherosclerotic heart disease of native coronary artery without angina pectoris (principal); I10 Essential (primary) hypertension; E78.00 Pure hypercholesterolemia, unspecified; E11.9 Type 2 diabetes mellitus without complications; I65.23 Occlusion and stenosis of bilateral carotid arteries; E78.1 Pure hyperglyceridemia; F17.290 Nicotine dependence, other tobacco product, uncomplicated; Z95.1 Presence of aortocoronary bypass graft; Z88.1 Allergy status to other antibiotic agents; Z88.5 Allergy status to narcotic agent; Z79.82 Long term (current) use of aspirin; Z79.899 Other long term (current) drug therapy; Z79.891 Long term (current) use of opiate analgesic; Z95.818 Presence of other cardiac implants and grafts; Z95.5 Presence of coronary angioplasty implant and graft